=== PATIENT | male | born 1995 | race Caucasian/White ===

== ENCOUNTER 2021-02-11 15:34 | Emergency (ER) | payer OTHER, SELFPAY ==
[2021-02-11 15:47] VITALS: BP 113/64; PULSE 92; RESP 16; TEMP 37.4; O2SAT 100
--- NOTE | 2021-02-11 15:59 | ED.URI ---
HPI - URI/Sore Throat General Chief Complaint: Upper Respiratory Infection Stated Complaint: Cough/Chest Congestion Time Seen by Provider: 02/11/21 15:59 Source: patient and RN notes reviewed Mode of arrival: ambulatory Limitations: no limitations History of Present Illness HPI Narrative: 25year old male presents to [facility] care with complaints of cough, congestion, sinus drainage and body aches, sore throat for the past 3 days. Patient states that he was sent home from work today due to his illness and he needs a note to return to work. Patient states that he has not had COVID or flu vaccine, he reports that he did perform rapid COVID tests prior to arrival here which were negative. Patient agrees to PCR COVID testing.Patient has taken cough medication and Tylenol for his symptoms without relief. MD elicited complaint: cough, sore throat and nasal congestion Pertinent past history: sinusitis and other (strep throat) Onset (ago): day(s) (3) Related Data Allergies Allergy/AdvReac Type Severity Reaction Status Date / Time No Known Allergies Allergy Unverified 03/30/17 16:48 Review of Systems Review of Systems: CONSTITUTIONAL: Denies known fevers, chills, or sweats. EYES: Denies visual changes, redness, or discharge. ENT: Positive rhinorrhea, congestion, sore throat, no otalgia. CARDIOVASCULAR: Denies chest pain, palpitations, or edema. RESPIRATORY: Positive for cough denies dyspnea. GASTROINTESTINAL: Denies abdominal pain, nausea, vomiting, or diarrhea. GENITOURINARY: Denies dysuria or hematuria. SKIN: Denies rash or itching. MUSCULOSKELETAL: Denies back pain, joint pain, positive body aches NEUROLOGIC: Denies headache, numbness, or weakness. PSYCHIATRIC: Denies anxiety or depression. All systems reviewed & are unremarkable except as noted in HPI and below PMFSH Past Medical History Medical History (Updated 02/13/21 @ 08:32 by Renetta Jimenez NP) Sinusitis URI (upper respiratory infection) Surgical History Surgical History (Updated 02/13/21 @ 08:30 by Renetta Jimenez NP) No history of previous surgery Family History Family History (Updated 02/13/21 @ 08:31 by Renetta Jimenez NP) Grandparent Diabetes mellitus Carcinoma of colon Social History Social History (Updated 02/13/21 @ 08:30 by Renetta Jimenez NP) Tobacco type: e-cigarettes/vaping Alcohol intake: current Substance use: current Substance use type: marijuana Living arrangements: with family Gender identity (if verbalized by the patient): Male Comments At time of signature, agree with nursing past medical, surgical, social and family history. There is no relevant family history pertinent to the presenting complaint Exam Narrative: GENERAL: Well-appearing, well-nourished, and in no acute distress. HEAD: Normocephalic, atraumatic. EYES: PERRLA and EOMI. ENT: Nares red with clear rhinorrhea no epistaxis. Mucous membranes moist.TM's normal with good light reflex, throat red with no exudates or lesions, mild tonsil enlargement NECK: Supple.no lymphadenopathy CHEST: Clear to auscultation. No respiratory distress. some cough with SAO2 100% on room air HEART: Regular rate and rhythm. No murmur heard. Normal peripheral pulses. ABDOMEN: Soft, nontender, nondistended, normal active bowel sounds. EXTREMITIES: Normal range of motion. No edema. SKIN: Warm, dry, no rash. NEURO: No focal deficits. Alert and oriented x3. Course Vital Signs Vital signs: Vital Signs Temperature 37.4 C 02/11/21 15:47 Pulse Rate 92 02/11/21 15:47 Respiratory Rate 16 02/11/21 15:47 Blood Pressure 113/64 02/11/21 15:47 Pulse Oximetry 100 02/11/21 15:47 Temperature 37.4 C 02/11/21 16:36 Pulse Rate 92 02/11/21 16:36 Respiratory Rate 16 02/11/21 16:36 Blood Pressure 113/64 02/11/21 16:36 Pulse Oximetry 100 02/11/21 16:36 MDM - URI/Sore Throat Differential Diagnosis Differential diagnosis: Likely upper respiratory inf
[2021-02-11 16:36] VITALS: BP 113/64; PULSE 92; RESP 16; TEMP 37.4; O2SAT 100
[2021-02-12 17:37] LABS: SARS-CoV-2 RNA PCR Negative
== END 2021-02-11 16:43 | disposition home or self-care (01) ==
PROVIDERS: Emergency Provider Registered Nurse
DX: J06.9 Acute upper respiratory infection, unspecified (principal); Z20.822 Contact with and (suspected) exposure to COVID-19; F17.290 Nicotine dependence, other tobacco product, uncomplicated
CPT/HCPCS: 87081; 87880; 99203; C9803; G0463; U0003; U0005

== ENCOUNTER 2025-02-15 11:15 | Emergency (ER) | payer OTHER, SELFPAY ==
--- NOTE | ~2025-02-15 | XR_ITS ---
EXAMINATION: XR shoulder LT min 2V DATE: 02/15/2025 12:14 INDICATION: Left shoulder pain post fall TECHNIQUE: AP internally and externally rotated, AP oblique externally rotated and transscapular Y views of the affected shoulder were obtained. COMPARISON: None FINDINGS: Normal alignment. No fracture. Glenohumeral joint is normal. Acromioclavicular joint is normal. Soft tissues are unremarkable. Visualized portion of the left mid and upper lung are clear with no pneumothorax. IMPRESSION: Normal left shoulder radiographs. Reviewed, dictated and finalized at location A. H OUT CREW MEMBER
--- NOTE | ~2025-02-15 | XR_ITS ---
Examination: [id number] Clinical History: fall left rib pain- pain with inspiration,LEFT SIDE 14FT FAL Comparison: None Technique: Frontal chest, 3 views left ribs Findings: Heart size normal. Lungs clear. No acute bony abnormality. IMPRESSION: 1. No acute cardiopulmonary findings given portable technique. 2. No rib fracture identified. Reviewed, dictated and finalized at location R. R ENERGY ENGINEER
--- NOTE | ~2025-02-15 | XR_ITS ---
Examination: XR hip LT min 2V Clinical History: lat left hip pain,LEFT SIDE 14FT FALL Comparison: None Technique: 3 views left hip Findings/impression: 1. No fracture or dislocation left hip. Reviewed, dictated and finalized at location R. WORK WRAPPER LAYER AND EXAMINER
--- NOTE | ~2025-02-15 | XR_ITS ---
Clinical History: BASE OF NECK PAIN,LEFT SIDE 14FT FALL Examination: [id number] Comparison: None Technique: 4 views cervical spine Findings: No acute fracture or listhesis. Straightening of normal cervical lordosis. Prevertebral soft tissues within normal limits. Disc spaces maintained. No significant degenerative changes. Impression: No acute fracture or listhesis cervical spine. Reviewed, dictated and finalized at location R. STANT WOMEN'S ROWING COACH Impression: No acute fracture or listhesis cervical spine.
[2025-02-15 11:25] VITALS: BP 150/83; PULSE 90; RESP 16; TEMP 36.9; O2SAT 100
--- OUTSIDE RECORDS SUMMARY | 2025-02-15 11:27 | XMS_ITS | Clinical Summary ---
Author Organization [facility] Address [address] [place] [address] Care Team Providers Care District Sales Coordinator Name Role Phone Emanuel Perez MD Primary Care Provider [phone] Allergies No known active allergies Medications loratadine (CLARITIN) 10 mg tablet Take 1 tablet (10 mg total) by mouth daily Active montelukast (SINGULAIR) 10 mg tablet Take 1 tablet (10 mg total) by mouth nightly 90 tablet 01/19/2023 Active cyclobenzaprine (FLEXERIL) 5 mg tablet TAKE 1 TABLET(5 MG) BY MOUTH THREE TIMES DAILY NEEDED FOR MUSCLE SPASMS 30 tablet 08/16/2024 Active Active Problems Problem Noted Date Diagnosed Date Strain of thoracic region 12/22/2018 Immunizations Immunization Administration Dates Next Due DTP 11/02/2000, 7,01/04/1996,1995,0 1995 HPV, Quadrivalent 08/20/2011,06/09/2011 Hep A, Pediatric 06/27/2006,10/12/2005 Hep B, Adolescent or Pediatric 01/04/1996,1995,1995 HiB 07/12/1996,01/04/1996,1995 ,1995 IPV 11/02/2000 Influenza, Split 05/20/2011 Influenza, Unspecified 06/11/2022(Deferred: Oliva ent Refused) MMR 11/02/2000,07/12/1996 Meningococcal MCV4P (Menactra) 10/29/2008 OPV 01/04/1996,1995,1995 Tdap 06/27/2006 Varicella 10/29/2008,10/19/2006 Medical History Medical History Date Comments Asthma Family History Medical History Relation Name Comments Diabetes Father Cancer Maternal Grandfather Cancer Maternal Grandmother brain? Pancreatic cancer Paternal Grandfather Relation Name Status Comments Father Alive Maternal Grandfather Maternal Grandmother Mother Alive Paternal Grandfather Social History Tobacco Use Types Packs/Day Years Used Date Smoking Tobacco: Former Cigarettes Smokeless Tobacco: Never Tobacco Cessation:Counseling Given: Not Answered Alcohol Use Standard Drinks/Week Comments Yes 0 (1 standard drink = 0.6 oz pur e alcohol) PHQ-2 Answer Date Recorded PHQ-2 Total Score (If total score is 3 or more points, staff should administer the PHQ-9) 0 09/29/2022 Personal Safety Answer Date Recorded Getting School Help Needed Not on file 05/27 Sex and Gender Information Value Date Recorded Sex Assigned at Not on file 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 Gender Identity Not on file Sexual Orientation Not on file Last Filed Vital Signs Vital Sign Reading Time Taken Comments Blood Pressure 98/62 09/29/2022 8:53 AM CDT Pulse 87 09/29/2022 8:53 AM CDT Temperature 36.8 C (98.2 F) 04/15/2019 8:53 PM MEDICAL LABORATORY SCIENTIST Respiratory Rate 16 09/29/2022 8:53 AM CDT Oxygen Saturation 99% 09/29/2022 8:53 AM CDT Inhaled Oxygen Concentration - - Weight 83.1 kg (183 lb 1.6 oz) 09/29/2022 8:53 A M CDT Height 190.3 cm (6' 2.92) 09/29/2022 8:53 AM CD T Body Mass Index 22.93 09/29/2022 8:53 AM CDT Plan of Treatment Health Maintenance Due Date Last Done Comments Hepatitis C Screening 1995 HPV Vaccines (3 - Male 3-dose series) 12/10/2011 08/20/2011, 06/09/2011 Regular Well Visit/Exam 18-64 07/04/2013 DTaP/Tdap/Td Vaccine (7 - Td or Tdap) 06/27/2016 06/27/2006, 11/02/2000, 07/12/1996, Additional history exists Depression Screening 09/30/2023 09/29/2022 Influenza Vaccine (#1) 2024 05/20/2011 Hepatitis B Screening Completed 01/04/1996 , 1995, 1995 Varicella Vaccines Completed 10/29/2008, 10/19/2006 Pneumococcal vaccine <65 Aged Out No longer eligible based on patient's age to complete this topic Insurance Care Teams District Sales Coordinator Relationship Specialty Start Date End Date Emanuel Perez MD [address] [place] [address] [place] [address] PCP - General Family Medicine 09/29/22
--- OUTSIDE RECORDS SUMMARY | 2025-02-15 11:27 | XMS_ITS | Clinical Summary ---
Author Organization [facility] Address [address] [place] [address] Care Team Providers Care Director Of Field Sales Name Role Phone Unavailable Primary Care Provider Unavailabl e Source Comments [facility],non-owned Affiliates and Associated Physician Practices is amultiple site organization consisting of ambulatory clinics and hospital sitesin [place], [place], [place] and [place]. This disclosure is being madepursuant to the Care Everywhere program and may not contain all information available regarding this patient. 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 Gender Identity Not on file Sexual Orientation Not on file Plan of Treatment Health Maintenance Due Date Last Done Comments HIV SCREENING 07/04/2010 HEPATITIS C SCREENING 06/30/2013 DTAP/TDAP/TD VACCINES (1 - Tdap) 07/04/2014 HEPATITIS B VACCINE (1 of 3 - 19+ 3-dose series) 07/04/2014 HPV VACCINE (1 - 3-dose SCDM series) 07/04/2022 DEPRESSION SCREENING 03/14/2024 COVID-19 VACCINE (1 - 2024-2 6 season) 2024 INFLUENZA VACCINE (#1) 2024 ZOSTER VACCINE (1 of 2) 07/04/2045 HIB VACCINE Aged Out No longer eligi ble based on patient's age to complete this topic MENINGOCOCCAL (Group B) VACC INE SHARED DECISION-MAKING Aged Out No longer eligibl e based on patient's age to complete this topic MENINGOCOCCAL GROUPS A/C/Y/W VACCINE Aged Out No longer eligible b ased on patient's age to complete this topic PNEUMOCOCCAL VACCINE Aged Out No long er eligible based on patient's age to complete this topic
--- NOTE | 2025-02-15 11:40 | ED_ITS ---
HPI - Chest Pain General Chief Complaint: Back Pain/Injury Stated Complaint: WC slammed upper left side of body Time Seen by Provider: 02/15/25 11:22 Source: patient Mode of arrival: ambulatory Limitations: no limitations History of Present Illness HPI narrative: Rl is a 29 year old male patient presenting to the clinic today with c/o a fall out of a bucket truck that was over a roof 3 days ago. He was getting out of the bucket and his foot was caught and the machine took him up approx 14 feet and then he fell from the bucket. Hit the left side of his head and felt dazed at the time of injury. Did not go to the ER as his boss told him to wait to be seen/get x-rays. States his is having posterior neck pain, pain with turning his head side to side, left shoulder pain, left hip pain/bruising, and left rib pain/pain with inspiration. Denies any chest pain. No head aches, dizziness, or visual changes. Related Data Allergies Allergy/AdvReac Type Severity Reaction Status Date / Time No Known Allergies Allergy Verified 02/15/25 11:38 Review of Systems Review of Systems: Pertinent positives per HPI. Patient denies any fever, chills, rash, headache, visual changes, dizziness, cough, runny nose, sore throat, palpitations, nausea, vomiting, diarrhea, constipation, abdominal pain, or any urinary issues. [facility] Past Medical History Medical History Sinusitis URI (upper respiratory infection) Surgical History Surgical History No history of previous surgery Family History Family History Grandparent Diabetes mellitus Carcinoma of colon Social History Social History Tobacco type: e-cigarettes/vaping Alcohol intake: current Substance use: current Substance use type: marijuana Living arrangements: with family Gender identity (if verbalized by the patient): Male Comments At the time of my signature, I reviewed and agree with the nursing past medical, surgical, social, and family history. There is no relevant family history pertinent to the patient complaint. Exam Narrative: General: Well-developed, well nourished, in no apparent distress Head: Normocephalic, atraumatic Eyes: Pupils equally round and reactive to light bilaterally, EOM intact, sclera and conjunctive clear, no discharge, lids normal Ears: TMs intact and clear, ear canals clear, no drainage, grossly hearing normal. Nose: Nares patent, no discharge, no inflammation, no sinus tenderness. Mouth: Oropharynx without lesions or masses, good dentition, MMM. Tongue midline, even rise and fall of uvula Neck: Supple, trachea midline, no enlargement of anterior or posterior cervical nodes, no thyroid masses or goiter palpable. Cardio: Regular rate and rhythm, s1 and s2 normal, no murmur appreciated. Resp: Clear to auscultation bilaterally anteriorly and posteriorly, no rhonchi, rales, wheezing or rubs Musculoskeletal: No deformity, tender to palpation over the base of the cervical spine, left posterior shoulder/shoulder blade, left ribs and left anterior alexys st, and left lateral hip, bruising noted to the left lateral hip, even rise and fall of the chest wall, grossly normal range of motion, muscle strength strong and equal, peripheral pulse strong, no edema, no cyanosis, normal gait and station Neuro: Alert and oriented x4 with normal speech, no focal deficits, cranial nerves I through XII intact, muscle strength 5 out of 5, sensation intact bilaterally. Course Course Level of Care: Express Care Visit Vital Signs Vital signs: Vital Signs Temperature 36.9 C 02/15/25 11: Pulse Rate 90 02/15/25 11:25 Respiratory Rate 16 02/15/25 11:25 Blood Pressure 150/83 H 02/15/25 11:25 Pulse Oximetry 100 02/15/25 11:25 Oxygen Delivery Room Air 02/15/25 11:25 Temperature 36.9 C 02/15/25 11:25 Pulse Rate 90 02/15/25 11:25 Respiratory Rate 16 02/15/25 11:25 Blood Pressure 150/83 H 02/15/25 11:25 Pulse Oximetry 100 02/15/25 11:25 Oxygen Delivery Room Air 02/15/25 11:25 [facility] MDM Narrative Medical decision making narrative: At the time of visit patient is resting comfortably on the exam table. Patient appears to be nontoxic. C/o a fall out of a bucket truck that was over a roof 3 days ago. He was getting out of the bucket and his foot was caught and the machine took him up approx 14 feet and then he fell from the bucket. Hit the left side of his head and felt dazed at the time of injury. Did not go to the ER as his boss told him to wait to be seen/get x-rays. States his is having p osterior neck pain, pain with turning his head side to side, left shoulder pain, left hip pain/bruising, and left rib pain/pain with inspiration. Denies any chest pain. No head aches, dizziness, or visual changes. Diagnostics: Cervical spine, left shoulder, left ribs with PA chest, and left hip x-rays were ordered. All x-rays were negative for any signs of fracture or malalignment. Plan: I suspect patient has acute neck pain, left shoulder pain, left rib contusion with chest wall pain, and left hip contusion/pain. X-rays were all negative for any sign of fracture or malalignment. Will give patient prescription for naproxen and baclofen. He denies any headache, dizziness, or, visual changes. Supportive measures were discussed with the patient and they voiced understanding discharge instructions and agrees to treatment plan. Return precautions reviewed Differential Diagnosis Differential Diagnosis: Differential diagnostic considerations for back pain include herniated disc, sciatica, abscess, strain/sprain, discitis, myelitis, fracture, hematoma, cauda equina, osteomyelitis, metastatic and/or primary malignancy, renal colic, pyelonephritis, AAA. Humerus fracture, vertebral fracture, hip fracture Imaging Data My impression: ITS Impressions Shoulder X-Ray 02/15/25 12:15 IMPRESSION: Normal left shoulder radiographs. Cervical Spine X-Ray 02/15/25 12:27 Impression: No acute fracture or listhesis cervical spine. Ribs w/Chest X-Ray 02/15/25 12:29 IMPRESSION: 1. No acute cardiopulmonary findings given portable technique. 2. No rib fracture identified. Radiologist's impression: ITS Impressions Shoulder X-Ray 02/15/25 12:15 IMPRESSION: Normal left shoulder radiographs. ITS Impressions Shoulder X-Ray 02/15/25 12:15 IMPRESSION: Normal left shoulder radiographs. Cervical Spine X-Ray 02/15/25 12:27 Impression: No acute fracture or listhesis cervical spine. Ribs w/Chest X-Ray 02/15/25 12:29 IMPRESSION: 1. No acute cardiopulmonary findings given portable technique. 2. No rib fracture identified. Discharge Plan Discharge Clinical Impression: Fall, Neck pain, acute, Acute pain of left shoulder, Contusion of rib on left side, Acute chest wall pain, Acute pain of left hip, Contusion of hip, left Patient Disposition: Home Condition: Stable Instructions: Antibiotic Form, Fall Prevention (ED), Shoulder Pain (ED), Hip Pain (ED), Rib Contusion (ED), Acute Neck Pain (ED) Additional Instructions: X-ray of your cervical spine, left shoulder, left hip, and left ribs/anterior chest are all negative for any sign of fracture or malalignment. Take any prescription medication only as prescribed-naproxen and baclofen Be mindful of sedation precautions given to you if taking a muscle relaxer. May use heat or ice to the affected area Consider massage or chiropractor adjustment if this was discussed with provider May use blue emu, lidocaine patches, or asper cream to affected area- do not apply heat or ice directly over cream- can cause burn. Complete appropriate neck and back stretching exercises. Follow up with your PCP in 3-5 days if symptom persist. Patient Language: Albanian Prescriptions: New naproxen 500 mg tablet 500 mg PO BID PRN (Reason: pain) 7 Days Qty: 14 0RF baclofen 10 mg tablet 10 mg PO TID PRN (Reason: muscle spasm) 7 Days Qty: 21 0RF No Action fexofenadine-pseudoephedrine [Monica-D 24 Hour] 180-240 mg tablet extended release 24 hr 1 tablet PO QAM Qty: 20 0RF Follow-up/Referrals: PHYSICIAN,COMMUNITY MARKETING COORDINATOR [Primary Care Provider, Internal Medicine] Stand Alone Forms: Work/School Release IP Time of Disposition: 12:50 Quality NIHSS Nursing Documentation ED NIHSS nursing documentation: reviewed/agree
== END 2025-02-15 13:03 | disposition home or self-care (01) ==
PROVIDERS: Emergency Provider Nurse Practitioner Family
DX: S20.212A Contusion of left front wall of thorax, initial encounter (principal); S70.02XA Contusion of left hip, initial encounter; M54.2 Cervicalgia; M25.512 Pain in left shoulder; F17.290 Nicotine dependence, other tobacco product, uncomplicated; W17.89XA Other fall from one level to another, initial encounter; Y99.0 Civilian activity done for income or pay
CPT/HCPCS: 71101; 72040; 73030; 73502; 99214; G0463